=== PATIENT | female | born 1970 ===

== ENCOUNTER 2017-01-17 06:31 | Observation (INO) | payer BC ==
[2017-01-10 15:28] LABS: HEMATOCRIT 37.7 % (36.0-48.0); HEMOGLOBIN 12.4 g/dL (12.0-16.0)
--- NOTE | ~2017-01-17 | OP ---
Record Of Operation [facility] [address] [place]. [address] NAME: NORMA BROWN : 70 STATUS : ADM Evangelist PAT#: [id number] AGE: 46 ADM/REG DATE : 01/17/17 MR#: [id number] REPORT SERV DATE: 01/17/17 DICTATED BY: AGUSTINA LOVE DATE: 01/17/17 REPORT STATUS : Draft TRANSCRIBED BY: MODL DATE: 01/17/17 DATE OF PROCEDURE: 01/17/2017 PREOPERATIVE DIAGNOSIS: Multinodular substernal goiter. POSTOPERATIVE DIAGNOSIS: Multinodular substernal goiter. PROCEDURE: Total thyroidectomy with substernal goiter cervical approach, 536[address]. ANESTHETIC: General. IV FLUIDS: 600 mL. ESTIMATED BLOOD LOSS: 10 mL. COMPLICATIONS: None. COUNTS: Correct. SPECIMEN: 1. Right thyroid lobe. 2. Left thyroid lobe. BRIEF HISTORY: The patient is a 46-year-old female who was referred to Dr. Love with an increase in size of her thyroid goiter. She was evaluated in the office, where ultrasound was done and confirmed the increased size and FNA was conducted of both the nodule on the left lobe and also the right low. The left thyroid was compressing the trachea the patient was offered surgical intervention. The pathology on both aspirates were benign and the patient was offered a left thyroid lobectomy versus total thyroidectomy, and she opted for total thyroidectomy. The risks, alternatives, and benefits of the procedure were discussed with the patient in the office and in the preop area, and she agreed to proceed. DESCRIPTION OF PROCEDURE: The patient was brought to the operating room and placed supine on the operating table. Anesthetic was administered and endotracheal intubation achieved. A shoulder roll was placed and the patient put in the semi-Machuca position. Of note, the endotracheal tube with a NIM monitoring tube from the nerve stimulator. The neck was then actually extended, prepped and draped in standard sterile fashion. A time-out was held. Incision approximately 6 cm in length was made centered on the midline in the natural skin fold. This carried down the level of the platysma with electrocautery. Subplatysmal flaps were created both cephalad and caudad down to the sternal notch. The median raphe was divided and thyroid exposed. We first addressed the left thyroid and dissected the posterior aspect of the strap muscles from the thyroid. The thyroid was medialized and the superior pole grasped. The superior pole was dissected free from the surrounding tissue and esophagus. The superior pole pedicle was clipped and divided with Harmonic to rotate the gland more medially. The superior and inferior Record Of Operation [facility] [address] [facility] [place]. [address] NAME: NORMA BROWN : 70 STATUS : ADM Evangelist PAT#: [id number] AGE: 46 ADM/REG DATE : 01/17/17 MR#: [id number] REPORT SERV DATE: 01/17/17 DICTATED BY: AGUSTINA LOVE DATE: 01/17/17 REPORT STATUS : Draft TRANSCRIBED BY: NICHOLAS DATE: 01/17/17 parathyroid glands were identified and preserved, dissected off this gland. They were in the typical positions. The dissection was carried out just inferior to the inferior thyroid artery, which led us down to the right recurrent laryngeal nerve. Due to NIM tube malposition, this could not be confirmed with the nerve stimulator, however, this was tracked up to the larynx. At this point, the thyroid tissue, was clamped well anterior to the nerve and divided and ligated serially until it was dissected back to the anterior portion of the trachea where the right lobe was divided from the left lobe with the Harmonic. The specimen was marked in the superior pole. Likewise, we turned our attention to the left thyroid lobe, which was addressed in much the same manner. The superior pole was dissected free from the esophagus and the superior pole pedicle was clipped and divided with the Harmonic. We then were able to express the substernal goiter and large left thyroid lobe through the wound and medialize it thus exposing all the structures. Again both inferior and superior parathyroids were identified and dissected from the thyroid it was preserved. The nerve was identified in the similar manner, but this time the nerve monitor confirmed its location. We felt that we were well anterior to the nerve and proceeded with serial clamping, dividing, and ligation of thyroid tissue off the trachea until it was easily freed from the anterior trachea with the electrocautery. The superior pole was again marked with a silk suture. Both the left and right neck were irrigated and confirmed to have adequate hemostasis. Surgicel was placed in both sides of the trachea. The median raphe was reapproximated with 3-0 Vicryl and a running fashion. The platysma was reapproximated with 4-0 Vicryl in an interrupted fashion. The skin was reapproximated with 4-0 Monocryl in a subcuticular fashion, then 5-0 Prolene prior to Dermabond placement. The Prolene was removed and the patient and the procedure terminated. The patient was extubated and transferred to the recovery room in stable condition. Will be observed overnight. WG/MODL Agustina Love MD / [id number] CC: Agustina Love MD
[~2017-01-17 06:31] MED LIST: ACET500CAP PO; FLEX PO; MOBIC15 MG PO; NEUR400 PO; PROTONIX PO; ULTRAM50 PO
[2017-01-18] MEDS ORDERED: CALTRA600D PO (08:55)
[2017-01-18] MEDS ORDERED: SYN125 PO (08:55)
[2017-01-18] MEDS ORDERED: PCET PO (08:55)
[2017-01-19] MEDS ORDERED: TUMSROLL PO (11:13)
== END 2017-01-19 13:59 | disposition home or self-care (01) ==
LOC: SDC 06:31 → 4SO 14:57
PROVIDERS: Surgery
PROC: 0GTK0ZZ Resection of Thyroid Gland, Open Approach (ICD-10-PCS; principal; 2017-01-17 07:45)
DX: E04.2 Nontoxic multinodular goiter (principal); K21.9 Gastro-esophageal reflux disease without esophagitis; Z79.1 Long term (current) use of non-steroidal anti-inflammatories (NSAID); M19.90 Unspecified osteoarthritis, unspecified site; Z79.891 Long term (current) use of opiate analgesic; Z79.899 Other long term (current) drug therapy; Z90.710 Acquired absence of both cervix and uterus; Z85.41 Personal history of malignant neoplasm of cervix uteri; Z98.890 Other specified postprocedural states
CPT/HCPCS: 82310; 85014; 85018; 88307; 96374; A9270-GY; G0378; J0690; J2250; J2270; J2405; J2550; J2710; J3010